=== PATIENT | female | born 1930 | race Caucasian/White ===

== ENCOUNTER 2016-05-08 14:29 | Emergency (ER) | END 2016-05-08 21:04 | disposition home or self-care (01) | CPT/HCPCS: 36415; 71010; 80053; 83690; 83880; 85025; 93005; 93010; 93970; 96372; 99283; 99284; A9270 ==

== ENCOUNTER 2016-05-23 | Outpatient (CLI) | payer MEDICARE, OTHER | END 2016-05-23 11:30 | disposition short-term general hospital (02) | CPT/HCPCS: A0425; A0429; A0888 ==